=== PATIENT | female | born 1990 | race Caucasian/White ===

== ENCOUNTER → 2021-11-28 | Outpatient (CLI) | payer OTHER ==
[2021-11-28 13:57] LABS: BASO % 0.5 % (0.0-1.0); EOS # 0.2 10^3/uL (0.0-0.5); EOS % 3.2 % (0.0-3.0); HEMATOCRIT 42.6 % (36.0-47.0); HEMOGLOBIN 13.7 g/dl (12.0-15.5); LYMPH # 2.3 10^3/uL (1.5-5.0); MEAN CORPUSCULAR HEMOGLOBIN 29.2 pg (27.0-33.0); MEAN CORPUSCULAR HGB CONC 32.2 g/dl (32.0-36.5); MEAN CORPUSCULAR VOLUME 90.8 fl (80.0-96.0); MONO # 0.5 10^3/uL (0.0-0.8); MONO % 8.1 % (2.0-8.0); NEUTROPHILS # 2.9 10^3/uL (1.5-8.5); NEUTROPHILS % 48.9 % (36.0-66.0); PLATELET COUNT, AUTOMATED 319 10^3/uL (150-450); RED BLOOD COUNT 4.69 10^6/uL (4.00-5.40); WHITE BLOOD COUNT 5.9 10^3/uL (4.0-10.0)
[2021-11-28 14:15] LABS: HEMOGLOBIN A1c 5.2 %
[2021-11-28 14:30] LABS: ALBUMIN 3.9 GM/DL (3.2-5.2); ALT/SGPT 19 U/L (12-78); BILIRUBIN,TOTAL 1.2 MG/DL (0.2-1.0); BLOOD UREA NITROGEN 8 MG/DL (7-18); CALCIUM LEVEL 9.4 MG/DL (8.5-10.1); CARBON DIOXIDE LEVEL 25 MEQ/L (21-32); CHLORIDE LEVEL 109 MEQ/L (98-107); FREE T4 0.84 NG/DL (0.76-1.46); GLOMERULAR FILTRATION RATE > 60.0 (>60); GLUCOSE, FASTING 87 MG/DL (70-100); POTASSIUM SERUM 4.4 MEQ/L (3.5-5.1); SODIUM LEVEL 141 MEQ/L (136-145); TOTAL PROTEIN 7.3 GM/DL (6.4-8.2)
[2021-11-30 09:07] LABS: TOTAL 25(OH) VITAMIN D 33.6 NG/ML (30.0-100.0)
[2021-11-30 09:08] LABS: ESTRADIOL 56.6 PG/ML; FOLLICLE STIMULATING HORMONE 5.5 mIU/mL; LUTEINIZING HORMONE 3.8 mIU/mL; PROGESTERONE 0.37 NG/ML; PROLACTIN 8.9 NG/ML
== END ==
LOC: M LAB 13:00
DX: E28.8 Other ovarian dysfunction (principal); E55.9 Vitamin D deficiency, unspecified

== ENCOUNTER → 2022-04-08 | Outpatient (CLI) | payer OTHER | LOC: M WHC 09:51 | DX: E28.8 Other ovarian dysfunction (principal); N92.6 Irregular menstruation, unspecified ==

== ENCOUNTER → 2022-04-21 | Outpatient (CLI) | payer OTHER ==
[2022-04-21 15:10] LABS: ESTRADIOL 122.6 PG/ML; PROGESTERONE 10.54 NG/ML
== END ==
LOC: M WUC 09:04
DX: E28.9 Ovarian dysfunction, unspecified (principal); R73.02 Impaired glucose tolerance (oral)

== ENCOUNTER → 2022-04-23 | Outpatient (CLI) | payer OTHER ==
[2022-04-23 13:43] LABS: ESTRADIOL 122.3 PG/ML; PROGESTERONE 11.78 NG/ML
== END ==
LOC: M WUC 09:52
DX: E28.9 Ovarian dysfunction, unspecified (principal)

== ENCOUNTER → 2022-04-25 | Outpatient (CLI) | payer OTHER ==
[2022-04-26 10:29] LABS: ESTRADIOL 100.1 PG/ML; PROGESTERONE 7.2 NG/ML
== END ==
LOC: M LAB 08:52
PROVIDERS: ATTEND Nurse Practitioner Adult Health
DX: E28.9 Ovarian dysfunction, unspecified (principal)

== ENCOUNTER → 2022-04-27 | Outpatient (CLI) | payer OTHER ==
[2022-04-27 17:43] LABS: ESTRADIOL 100.1 PG/ML; PROGESTERONE 7.03 NG/ML
== END ==
LOC: M WUC 08:37
DX: E28.9 Ovarian dysfunction, unspecified (principal)

== ENCOUNTER → 2022-04-29 | Outpatient (CLI) | payer OTHER ==
[2022-04-29 11:52] LABS: PROGESTERONE 2.62 NG/ML
== END ==
LOC: M WUC 08:11
DX: E28.9 Ovarian dysfunction, unspecified (principal)